=== PATIENT | female | born 1975 | race Caucasian/White ===

== ENCOUNTER 2022-06-13 11:18 | Outpatient (CLI) | payer BC, SELFPAY ==
--- NOTE | 2022-06-13 11:30 | XR_ITS ---
WS: [id number] Exam: XR knee LT 4V [id number] Date/Time of Exam: 06/13/2022 12:10 PM Reason For Exam: L KNEE PAIN No acute fracture or dislocation. The joint compartments are well-maintained. No joint effusion. Norm al soft tissues. XR/XR knee LT 4V [id number] IMPRESSION: 1. Normal left knee.
== END 2022-06-13 11:19 | disposition home or self-care (01) ==
PROVIDERS: PCP Nurse Practitioner Family; Visit Provider Nurse Practitioner Family
DX: M25.562 Pain in left knee (principal)
CPT/HCPCS: 73564

== ENCOUNTER 2022-07-08 11:38 | Outpatient (CLI) | payer BC, SELFPAY ==
--- NOTE | 2022-07-08 11:46 | MM_ITS ---
WS: [id number] BILATERAL SCREENING DIGITAL TOMOSYNTHESIS MAMMOGRAM WITH CAD HISTORY: SCREENING COMPARISON: 01/25/2020 and 07/20/2018 Bilateral CC and MLO views with tomosynthesis and synthetic mammography submitted. Computer aided det ection analyzed. Breast composition: There are scattered areas of fibroglandular density. No suspicious masses, microc alcifications or architectural distortion. MM/[place] [id number] IMPRESSION: BI-RADS: 1-Negative FOLLOW UP: 1 Year Follow-up
== END 2022-07-08 11:39 | disposition home or self-care (01) ==
PROVIDERS: PCP Nurse Practitioner Family; Visit Provider Nurse Practitioner Family
DX: Z12.31 Encounter for screening mammogram for malignant neoplasm of breast (principal)
CPT/HCPCS: 77063; 77067

== ENCOUNTER 2024-02-25 11:31 | Outpatient (CLI) | payer BC, SELFPAY ==
--- NOTE | 2024-02-25 11:37 | US_ITS ---
WS: [id number] Complete ABDOMINAL ULTRASOUND HISTORY: RUQ ABDOMINAL PAIN COMPARISON: None available. Liver: 17.8 cm in length. Normal size liver and echogenicity. No bile duct dilatation or mass. Portal Vein: Normal hepatopetal flow with monophasic waveform. Gallbladder: Normally distended gallbladder with no stones or wall thickening. CBD: 0.4 cm Pancreas: Head and neck are normal. The remaining body and tail are not visualized due to gas. Right kidney: 11.7 cm x 3.7 x 5.0 cm. Cortex:0.6 cm. Normal size and echogenicity. No hydronephrosis or mass. Left kidney: 10.4 cm x 5.7 cm x 4.4 cm. Cortex: 1.3 cm. Normal size and echogenicity. No hydronephrosis or mass. Spleen: 10.1 cm. Normal size and echogenicity. Aorta and IVC: Unremarkable abdominal aorta and IVC. US/US abdomen complete* [id number] Impression: 1. Normal gallbladder. 2. No hydronephrosis or renal atrophy. 3. Poorly visualized body and tail of the pancreas. 4. Negative liver.
== END 2024-02-25 11:32 | disposition home or self-care (01) ==
LOC: RAD 11:31
PROVIDERS: PCP Nurse Practitioner Family
DX: R10.11 Right upper quadrant pain (principal)
CPT/HCPCS: 76700